=== PATIENT | female | born 1995 | race Caucasian/White ===

== ENCOUNTER 2018-07-27 22:12 | Emergency (ER) | payer OTHER, SELFPAY ==
[2018-07-27 22:12] VITALS: BP 123/68; PULSE 96; RESP 18; TEMP 37.4; O2SAT 100; BMI 22.6
[2018-07-27 22:28] LABS: Mucous, Urine 0 SEEN /hpf (<or=2+)
[2018-07-27 22:35] LABS: Color, Urine Yellow (Yellow); Glucose, Dipstick Normal (Normal); Ketone-Dipstick Negative (Negative); Leukocyte Esterase-Dipstick 500 /ul (Negative); Nitrite-Dipstick Positive (Negative); Occult Blood-Urine 250 /ul (Negative); Protein-Dipstick 100 mg/dl (Negative); Urine Bilirubin Dipstick 3 mg/dL (Negative); Urine Clarity Cloudy (Clear); Urine Urobilinogen 4 mg/dl (Normal); Urine pH 6.5 (5.0 - 8.0)
[2018-07-27 22:36] LABS: Internal QC Validated? YES +Cl - CLEAR BKGD; Pregnancy, Urine Negative Negative
[2018-07-27 22:41] LABS: Red Blood Cells-Urine 50-100 SEEN /hpf (0-5); Squamous Epithelial Cells - UA 0-5 SEEN /hpf (5-10); White Blood Cells 50-100 SEEN /hpf (0-5)
[2018-07-27 22:42] LABS: Amorphous Sediment 1+ URATE; Bacteria 1+ /hpf (None Seen)
[2018-07-27] MEDS: Nitrofurantoin Macrocrystals 100 MG Capsule PO (22:54)
--- NOTE | 2018-07-27 23:08 | ED.DCSUM_ITS ---
- ER Visit Summary Date of Service: 07/27/18 Chief Complaint: Dysuria History of Present Illness: The patient is a 23 F presents to the emergency department 2 days of increased urinary frequency and urgency. The patient symptoms began yesterday. She describes it got worse. She is been taking Pyridium with little improvement. She denies any fevers or chills. She denies any nausea or vomiting. She is not currently sexually active. Physical Examination: Vital signs reviewed General: Well-nourished, well-developed Head: Normocephalic, atraumatic Eyes: Pupils equal and reactive, extraocular muscles intact Neck, supple, no lymphadenopathy Heart: Regular rate and rhythm Respiratory: No distress, clear bilaterally Abdomen: Soft, nontender, nondistended, no peritoneal signs Back: Nontender Extremities: Nontender, no edema, no cords Skin: Normal color no rash Neuro: Alert and oriented, no focal or lateralizing deficits Test Results: [] Emergency Department Course and Treatment: [] Treatment Plan: The patient has no signs or symptoms of pyelonephritis. She has no CVA tenderness. She had no fever. Urine was obtained which does show evidence of infection. Patient will be treated with Macrobid and culture was added. She will be discharged home. Disposition: Discharge Impression: Acute cystitis [] This note was generated with [employer] dictation software. It may contain incorrect words, spelling, and punctuation that were not noted in review of the chart prior to signing ED Disposition - Plan for ED Patient: Instructions: ED UTI Cystitis Female Prescriptions: Nitrofurantoin Macrocrystals [Macrobid] 100 mg PO Q12 #14 cap Referrals: Care Physician,No Primary [Primary Care Provider] -
[2018-07-27 23:20] VITALS: BP 121/85; PULSE 98; RESP 18; O2SAT 98
--- NOTE | 2018-07-27 23:20 | ED.RN ---
SEPSIS SCREEN COMPLETED. PT D/C.
--- NOTE | 2018-07-27 23:21 | ED.RN ---
PT GIVEN WRITTEN AND VERBAL DISCHARGE INSTRUCTIONS AND HOME GOING PRESCRIPTIONS. PT VERBALIZES UNDERSTANDING. PT ASKS ABOUT PREVIOUSLY PRESCRIBED AZO. EDUCATED TO TAKE NEEDED FOR URINARY DISCOMFORT. PT DENIES ANY FURTHER QUESTIONS AND AMBUALTES OUT OF DEPT WITH MOTHER.
== END 2018-07-27 23:23 | disposition home or self-care (01) ==
LOC: ED 22:46
PROVIDERS: Emergency Provider Emergency Medicine
DX: N30.00 Acute cystitis without hematuria (principal)
CPT/HCPCS: 81001; 81025; 87086; 87088; 87186; 99283